=== PATIENT | male | born 1950 | race Caucasian/White ===

== ENCOUNTER 2023-02-26 13:42 | Emergency (ER) | payer MEDICARE, BC ==
[2023-02-26] MEDS: Lidocaine 1% with EPINEPHrine 1:100,000 20 ML MDV INJECT ONE (14:05)
[2023-02-26] MEDS: Bacitracin Oint 1 GM U/D Packet TOP ONE (14:22)
== END 2023-02-26 14:52 | disposition home or self-care (01) ==
LOC: LB.ED 13:42
DX: S22.42XA Multiple fractures of ribs, left side, initial encounter for closed fracture (principal); S51.011A Laceration without foreign body of right elbow, initial encounter; Z88.8 Allergy status to other drugs, medicaments and biological substances; W18.30XA Fall on same level, unspecified, initial encounter
CPT/HCPCS: 12001; 71101-LT; 99283